=== PATIENT | female | born 1960 | race Caucasian/White ===

== ENCOUNTER 2018-08-12 14:48 | Inpatient (IN) ==
[2018-08-12] MEDS ORDERED: PANTOPRAZOLE 40 MG VIAL IV STA (16:51)
[2018-08-12] MEDS ORDERED: EPINEPHrine 1 MG/ML VIAL SUBCUT STA (16:51)
[2018-08-12] MEDS ORDERED: FAMOTIDINE 20 MG/2 ML VIAL IV STA (16:51)
[2018-08-12] MEDS ORDERED: diphenhydrAMINE 50 MG/1 ML VIAL IV STA (16:51)
[2018-08-12] MEDS ORDERED: SODIUM CHLORIDE 0.9% 500 ML IV ONE (16:51)
[2018-08-12] MEDS ORDERED: methylPREDNISolone SOD SUC 125 MG/2 ML VIAL IV STA (16:51)
[2018-08-12 17:22] LABS: Basophils % 0.2 % (0.0-0.8); Eosinophils # 0.1 10*3/uL (0.0-0.87); Eosinophils % 0.3 % (0.00-10.9); Hematocrit 40.5 VOL% (35.7-47.0); Hemoglobin 13.4 GM/DL (12.0-16.0); Immature Granulocytes % 0.6 %; Immature Granulocytes Absolute 0.11 #; Lymphocytes % 17.1 % (21.3-54.2); Mean Corpuscular HGB Conc 33.1 GM/DL (32-36); Mean Corpuscular Hemoglobin 29 PG (27-34); Mean Corpuscular Volume 88.4 FL (87-102); Mean Platelet Volume 9.1 FL (9.6-12.0); Monocytes # 1.1 10*3/uL (0.11-0.8); Monocytes % 6.1 % (1.7-12.7); Neutrophils # 13.3 10*3/uL (1.4-7.4); Neutrophils % 75.7 % (38.7-73.9); Platelet Count 319 T/CUMM (130-400); Red Blood Count 4.58 MC/CUMM (3.8-5.5); Red Cell Distribution Width 13.2 % (9.3-17.3); White Blood Count 17.6 T/CUMM (4-12)
[2018-08-12 17:43] LABS: Bilirubin,Total 0.5 MG/DL (0.2-1.0); Calcium 10.2 MG/DL (8.5-10.1); Osmolality,Calculated 279.7 MOS/KG (273-304); Potassium 3.8 MMOL/L (3.5-5.1); Total Protein 8.2 G/DL (6.4-8.3)
[2018-08-12 18:00] LABS: Apearance,Urine CLEAR (Clear); Bacteria,Urine Occasional /HPF (Few); Bilirubin,Urine Negative (Negative); Blood, Urine Moderate mg/dL (Negative); Glucose,Urine (UA) Negative (Negative); Hyaline Casts,Urine 1 /LPF (0-3); Ketones,Urine Negative (Negative); Nitrite,Urine Negative (Negative); Protein,Urine 30 MG/DL; RBC,Urine 1 /HPF (0-4); Squamous Epithelial Cell,Urine Occasional /HPF (0-10); Urine Color Yellow (Yellow); Urine Specific Gravity 1.015 (1.001-1.035); Urine Urobilinogen < 2.0 EU/DL (0.2-1.0); WBC,Urine 3 /HPF (0-6)
[2018-08-12 19:04] LABS: Lactic Acid 3.1 MMOL/L (0.4-2.0)
[2018-08-12 19:32] LABS: Rheumatoid Factor < 15 IU/ML (<15); Uric Acid 5.5 MG/DL (2.6-6.0)
[2018-08-12] MEDS: PIPERACILLIN/TAZOBACTAM 3,375 MG in SODIUM CHLORIDE 0.9% 100 ML IV SCH (20:42)
[2018-08-12] MEDS ORDERED: ONDANSETRON 4 MG/2 ML VIAL IV PRN (21:11)
[2018-08-12] MEDS ORDERED: HYDROmorphone 2 MG TABLET PO PRN (21:11)
[2018-08-12] MEDS ORDERED: GLUCAGON 1 MG VIAL IM PRN (21:11)
[2018-08-12] MEDS ORDERED: ACETAMINOPHEN 325 MG TABLET PO PRN (21:11)
[2018-08-12] MEDS ORDERED: DEXTROSE 50% 25 GM/50 ML VIAL IV PRN (21:11)
[2018-08-12] MEDS ORDERED: diphenhydrAMINE CAP 25 MG CAPSULE PO ONE (21:30)
[2018-08-12] MEDS: DOCUSATE SODIUM 100 MG CAPSULE PO SCH (22:13)
[2018-08-12] MEDS: ZALEPLON 5 MG CAPSULE PO SCH (22:13)
[2018-08-12] MEDS: SODIUM CHLORIDE 0.9% 1,000 ML IV SCH (22:14)
[2018-08-12] MEDS: INSULIN REGULAR 100 UNIT/ML SUBCUT SCH ×2 (22:14→23:43)
[2018-08-13] MEDS: PIPERACILLIN/TAZOBACTAM 3,375 MG in SODIUM CHLORIDE 0.9% 100 ML IV SCH ×2 (02:41→12:25)
[2018-08-13] MEDS: methylPREDNISolone SOD SUC 40 MG/1 ML VIAL IV SCH ×4 (02:41→17:32)
[2018-08-13] MEDS: INSULIN REGULAR 100 UNIT/ML SUBCUT SCH (05:42)
[2018-08-13 06:46] LABS: Basophils % 0.1 % (0.0-0.8); Hematocrit 34.8 VOL% (35.7-47.0); Hemoglobin 11.2 GM/DL (12.0-16.0); Immature Granulocytes % 0.6 %; Immature Granulocytes Absolute 0.09 #; Lymphocytes # 1.3 10*3/uL (1.4-4.0); Lymphocytes % 8.5 % (21.3-54.2); Mean Corpuscular HGB Conc 32.2 GM/DL (32-36); Mean Corpuscular Hemoglobin 29 PG (27-34); Mean Corpuscular Volume 89.9 FL (87-102); Mean Platelet Volume 9.7 FL (9.6-12.0); Monocytes # 0.5 10*3/uL (0.11-0.8); Monocytes % 3.5 % (1.7-12.7); Neutrophils # 13.3 10*3/uL (1.4-7.4); Neutrophils % 87.3 % (38.7-73.9); Platelet Count 301 T/CUMM (130-400); Red Blood Count 3.87 MC/CUMM (3.8-5.5); Red Cell Distribution Width 13.1 % (9.3-17.3); White Blood Count 15.2 T/CUMM (4-12)
[2018-08-13 06:58] LABS: INR 0.9; PT Patient Result 9.9 SECS; Partial Thromboplastin Time 26.3 SECS (0-40)
[2018-08-13 07:28] LABS: Albumin 3.4 G/DL (3.4-5.0); Bilirubin,Total 0.5 MG/DL (0.2-1.0); Calcium 9.1 MG/DL (8.5-10.1); Osmolality,Calculated 291.3 MOS/KG (273-304); Potassium 4.7 MMOL/L (3.5-5.1); Total Protein 6.6 G/DL (6.4-8.3)
[2018-08-13 07:33] LABS: Risk Ratio 2.65; VLDL CHOLESTEROL 20.2 MG/DL
[2018-08-13] MEDS ORDERED: DEXTROSE 50% 25 GM/50 ML VIAL IV PRN (08:21)
[2018-08-13] MEDS ORDERED: GLUCAGON 1 MG VIAL IM PRN (08:21)
[2018-08-13] MEDS: LISINOPRIL 2.5 MG TABLET PO SCH (08:43)
[2018-08-13] MEDS: sitaGLIPtin 25 MG TABLET PO SCH ×2 (08:44→16:06)
[2018-08-13] MEDS: metFORMIN 500 MG TABLET PO SCH ×2 (08:44→16:06)
[2018-08-13] MEDS: DOCUSATE SODIUM 100 MG CAPSULE PO SCH ×2 (08:45→20:37)
[2018-08-13] MEDS: ENOXAPARIN 40 MG/0.4 ML SYRINGE SUBCUT SCH (08:45)
[2018-08-13] MEDS: PRAVASTATIN 20 MG TABLET PO SCH (08:49)
[2018-08-13] MEDS ORDERED: PANTOPRAZOLE 40 MG VIAL IV SCH (09:00)
[2018-08-13] MEDS ORDERED: CETIRIZINE 10 MG TABLET PO SCH (09:00)
[2018-08-13] MEDS: SODIUM CHLORIDE 0.9% 1,000 ML IV SCH ×2 (10:25→21:47)
[2018-08-13] MEDS: INSULIN LISPRO 100 UNIT/ML SUBCUT SCH ×3 (12:26→20:37)
[2018-08-13] MEDS: PANTOPRAZOLE 40 MG VIAL IV SCH (16:06)
[2018-08-13] MEDS: ZALEPLON 5 MG CAPSULE PO SCH (20:37)
[2018-08-13] MEDS: CETIRIZINE 10 MG TABLET PO SCH (20:37)
[2018-08-14] MEDS: SODIUM CHLORIDE 0.9% 1,000 ML IV SCH ×2 (05:34→14:11)
[2018-08-14 05:48] LABS: Basophils % 0.1 % (0.0-0.8); Hemoglobin 10.7 GM/DL (12.0-16.0); Immature Granulocytes % 1.7 %; Immature Granulocytes Absolute 0.31 #; Lymphocytes # 2.3 10*3/uL (1.4-4.0); Lymphocytes % 12.9 % (21.3-54.2); Mean Corpuscular HGB Conc 32.4 GM/DL (32-36); Mean Corpuscular Hemoglobin 29 PG (27-34); Mean Corpuscular Volume 89.2 FL (87-102); Mean Platelet Volume 10.2 FL (9.6-12.0); Monocytes # 1.2 10*3/uL (0.11-0.8); Monocytes % 6.5 % (1.7-12.7); Neutrophils # 14.2 10*3/uL (1.4-7.4); Neutrophils % 78.8 % (38.7-73.9); Platelet Count 316 T/CUMM (130-400); Red Cell Distribution Width 13.3 % (9.3-17.3)
[2018-08-14 06:07] LABS: Calcium 8.8 MG/DL (8.5-10.1); Osmolality,Calculated 289.1 MOS/KG (273-304); Potassium 4.1 MMOL/L (3.5-5.1)
[2018-08-14] MEDS: INSULIN LISPRO 100 UNIT/ML SUBCUT SCH ×2 (08:45→11:43)
[2018-08-14] MEDS: metFORMIN 500 MG TABLET PO SCH (09:36)
[2018-08-14] MEDS: CETIRIZINE 10 MG TABLET PO SCH (09:36)
[2018-08-14] MEDS: LISINOPRIL 2.5 MG TABLET PO SCH (09:36)
[2018-08-14] MEDS: sitaGLIPtin 25 MG TABLET PO SCH (09:36)
[2018-08-14] MEDS: PANTOPRAZOLE 40 MG VIAL IV SCH (09:37)
[2018-08-14] MEDS: ENOXAPARIN 40 MG/0.4 ML SYRINGE SUBCUT SCH (09:37)
[2018-08-14] MEDS: PRAVASTATIN 20 MG TABLET PO SCH (09:37)
[2018-08-14] MEDS: DOCUSATE SODIUM 100 MG CAPSULE PO SCH (09:37)
[2018-08-14 16:35] VITALS: BP 106/54
[2018-08-14 22:35] LABS: Ehrlichia Chaffeensis (HME)IgG <1:64 titer (<1:64)
== END 2018-08-14 16:59 | disposition home or self-care (01) | DRG 607 ==
LOC: N.ED 14:48 → N.EDINP 20:07 → N.5E 20:28
PROVIDERS: ADMIT Internal Medicine; ATTEND Internal Medicine